=== PATIENT | male | born 1995 | race Caucasian/White ===

== ENCOUNTER 2016-06-24 11:19 | Emergency (ER) | payer OTHER ==
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
[2016-06-24 12:10] LABS: Glucose,Whole Blood 237 mg/dL (75-99)
[2016-06-24 12:29] LABS: Basophils % (A) 0 %; CHCM 34.5; Eosinophils % (A) 0 %; HCT 47.2 % (39.0-53.0); HDW 2.34; HGB 16.1 gm/dL (13.0-17.5); Luc # (Auto) 0.12; Luc % (Auto) 1; Lymphocytes # (A) 1.1 k/uL (1.0-4.8); Lymphocytes % (A) 9 %; MCH 30.7 pg (25.0-35.0); MCHC 34.1 g/dL (31.0-37.0); MCV 90.2 fL (80.0-100.0); Mean Platelet Volume 6.5; Monocytes # (A) 0.5 k/uL (0-1.0); Monocytes % (A) 5 %; Neutrophils % (A) 85 %; RBC 5.23 m/uL (4.30-5.90); RDW 12.2 % (11.5-15.5); WBC 11.8 k/uL (3.8-10.6); WBC (Perox) 11.72
[2016-06-24 12:37] LABS: ALT 28 U/L (21-72); AST 27 U/L (17-59); Alkaline Phosphatase 113 U/L (38-126); Anion Gap 10 mmol/L; Blood Urea Nitrogen 25 mg/dL (9-20); Calcium 9.5 mg/dL (8.4-10.2); Carbon Dioxide 27 mmol/L (22-30); Chloride 103 mmol/L (98-107); Glucose 237 mg/dL (74-99); Non-African American GFR(MDRD) >60 (>60 ml/min/1.73 sqM); Potassium 4.3 mmol/L (3.5-5.1); Sodium 140 mmol/L (137-145); Total Bilirubin 0.8 mg/dL (0.2-1.3); Total Protein 7.5 g/dL (6.3-8.2)
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
[2016-06-24 13:47] VITALS: RESP 18
[2016-06-24 14:13] LABS: Glucose,Whole Blood 168 mg/dL (75-99)
[2016-06-24 14:27] VITALS: BP 118/68; PULSE 84; TEMP 98
== END 2016-06-24 14:29 | disposition other institution (70) ==
LOC: EC 11:19
DX: S06.5X0A Traumatic subdural hemorrhage without loss of consciousness, initial encounter (principal); S80.02XA Contusion of left knee, initial encounter; M54.2 Cervicalgia; M79.621 Pain in right upper arm; E11.9 Type 2 diabetes mellitus without complications; Z88.1 Allergy status to other antibiotic agents; Z79.4 Long term (current) use of insulin; V48.5XXA Car driver injured in noncollision transport accident in traffic accident, initial encounter; Y92.410 Unspecified street and highway as the place of occurrence of the external cause
CPT/HCPCS: 36415; 70450; 71020; 72125; 80053; 85025; 93005; 99285

== ENCOUNTER → 2016-09-17 | Outpatient (CLI) | payer OTHER ==
[2016-09-17 22:05] LABS: Hemoglobin A1C 7.9 % (4.2-6.1)
== END | disposition home or self-care (01) ==
LOC: LABWHC1 16:47
PROVIDERS: ATTEND Pediatrics
DX: E10.9 Type 1 diabetes mellitus without complications (principal)
CPT/HCPCS: 36415; 83036

== ENCOUNTER 2016-10-31 08:11 | Emergency (ER) | payer OTHER ==
[2016-10-31 08:25] LABS: Glucose,Whole Blood 258 mg/dL (75-99)
[2016-10-31] MEDS ORDERED: SODIUM CHLORIDE 0.9% 1,000 ML IV ONE (08:40)
[2016-10-31] MEDS ORDERED: SODIUM CHLORIDE 0.9% 1,000 ML IV SCH (08:45)
--- NOTE | 2016-10-31 08:45 | ED ---
General Adult HPI - General Chief complaint: Recheck/Abnormal Lab/Rx Stated complaint: high blood sugar Time Seen by Provider: 10/31/16 08:30 Source: patient, RN notes reviewed, old records reviewed Mode of arrival: ambulatory Limitations: no limitations - History of Present Illness Initial comments: This is a 21-year-old male presents emergency Department chief complaint of elevated blood sugars for the past 2-3 days. Patient reports that he is a type I diabetic and was diagnosed 2 years ago. Patient reports that he uses a [employer] insulin pump. Patient reports that he does not know how to change his basal rate. Patient states that he eats the same meals every day, and does give him self the food bolus dose her insulin. Patient reports that he just feels generally tired. He reports that he works midnight. Denies any ascending fever, chills, or specific illnesses to cause elevated blood sugar. Patient reports that overall he is generally healthy. Patient states that he used to see Dr. Tamayo, who doesn't take his insurance anymore. He reports that he gets his insulin about from his PCP. - Related Data Home Medications Medication Instructions Recorded Confirmed Insulin Aspart (For Pump) [NovoLOG 0.01 unit SQ-PUMP CONTINUOUS 06/24/16 (For Pump)] Allergies Allergy/AdvReac Type Severity Reaction Status Date / Time cefixime [From Suprax] Allergy Severe Anaphylaxis Verified 10/31/16 08:22 Review of Systems ROS Statement: Those systems with pertinent positive or pertinent negative responses have been documented in the HPI. ROS Other: All systems not noted in ROS Statement are negative. Past Medical History Past Medical History: Diabetes Mellitus History of Any Multi-Drug Resistant Organisms: None Reported Past Surgical History: Orthopedic Surgery Additional Past Surgical History / Comment(s): "right hand re-construction surgery on pointer finger and thumb" Past Psychological History: No Psychological Hx Reported Smoking Status: Never smoker Past Alcohol Use History: None Reported Past Drug Use History: None Reported - Past Family History Mother Family Medical History: Asthma Additional Family Medical History / Comment(s): pernicious anemia Father Family Medical History: COPD General Exam - General Exam Comments Initial Comments: This is a 21-year-old male. Patient does not appear to be in any acute distress. Limitations: no limitations Head exam: Present: atraumatic, normocephalic, normal inspection Eye exam: Present: normal appearance, PERRL, EOMI. Absent: scleral icterus, conjunctival injection, periorbital swelling ENT exam: Present: normal exam Neck exam: Present: normal inspection. Absent: tenderness, meningismus, lymphadenopathy Respiratory exam: Present: normal lung sounds bilaterally. Absent: respiratory distress, wheezes, rales, rhonchi, stridor Cardiovascular Exam: Present: regular rate, normal rhythm, normal heart sounds. Absent: systolic murmur, diastolic murmur, rubs, gallop, clicks GI/Abdominal exam: Present: soft, normal bowel sounds. Absent: distended, tenderness, guarding, rebound, rigid Extremities exam: Present: normal inspection, full ROM, normal capillary refill. Absent: tenderness, pedal edema, joint swelling, calf tenderness Back exam: Present: normal inspection Neurological exam: Present: alert, oriented X3, CN II-XII intact Psychiatric exam: Present: normal affect, normal mood Skin exam: Present: warm, dry, intact, normal color. Absent: rash Course Vital Signs 10/31/16 10/31/16 10/31/16 08:13 09:23 10:55 Temperature 97.0 F L Pulse Rate 69 74 65 Respiratory 18 20 20 Rate Blood Pressure 116/63 127/56 113/56 O2 Sat by Pulse 99 99 100 Oximetry 10/31/16 11:12 Temperature 98 F Pulse Rate Respiratory Rate Blood Pressure O2 Sat by Pulse Oximetry Medical Decision Making - Medical Decision Making 21-year-old male with elevated blood sugar. Type I diabetic. Patient's blood sugar was elevated at 290. Patient's A1c was obtained but we do not have an this time. Negative acetone. Discussed that patient is alsobe in regards to changing his 8. Discussed continue dosing insulin boluses with meals as he is supposed to. Discussed monitoring diet. Patient's urinalysis did show positive for many white blood cells. Patient be treated with Zithromax and Levaquin is patient is ALLERGIC to some sports. Patient mother urine culture obtained. Discussed close follow-up with primary care provider. Return parameters were discussed. - Lab Data Result diagrams: 10/31/16 08:45 10/31/16 08:45 Lab Results 10/31/16 10/31/16 10/31/16 Range/Units 08:15 08:21 08:45 WBC (3.8-10.6) k/uL RBC (4.30-5.90) m/uL Hgb (13.0-17.5) gm/dL Hct (39.0-53.0) % MCV (80.0-100.0) fL MCH (25.0-35.0) pg MCHC (31.0-37.0) g/dL RDW (11.5-15.5) % Plt Count (150-450) k/uL Neutrophils % % Lymphocytes % % Monocytes % % Eosinophils % % Basophils % % Neutrophils # (1.3-7.7) k/uL Lymphocytes # (1.0-4.8) k/uL Monocytes # (0-1.0) k/uL Eosinophils # (0-0.7) k/uL Basophils # (0-0.2) k/uL Sodium 137 (137-145) mmol/L Potassium 5.1 (3.5-5.1) mmol/L Chloride 101 (98-107) mmol/L Carbon Dioxide 25 (22-30) mmol/L Anion Gap 11 mmol/L BUN 20 (9-20) mg/dL Creatinine 0.79 (0.66-1.25) mg/dL Est GFR (MDRD) Af Amer >60 (>60 ml/min/1.73 sqM) Est GFR (MDRD) Non-Af >60 (>60 ml/min/1.73 sqM) Glucose 267 H (74-99) mg/dL POC Glucose (mg/dL) 258 H (75-99) mg/dL POC Glu [facility] Chief ID Huyen Mcgovern [address] Glu mg/dL mg/dL Hemoglobin A1c (4.2-6.1) % Calcium 9.4 (8.4-10.2) mg/dL Total Bilirubin 0.5 (0.2-1.3) mg/dL AST 19 (17-59) U/L ALT 29 (21-72) U/L Alkaline Phosphatase 103 (38-126) U/L Total Protein 7.1 (6.3-8.2) g/dL Albumin 4.4 (3.5-5.0) g/dL Urine Color Light Yellow Urine Appearance Clear (Clear) Urine pH 7.0 (5.0-8.0) Ur Specific [place] 1.023 (1.001-1.035) Urine Protein Negative (Negative) Urine Glucose (UA) 4+ H (Negative) Urine Ketones Trace H (Negative) Urine Blood Negative (Negative) Urine Nitrite Negative (Negative) Urine Bilirubin Negative (Negative) Urine Urobilinogen <2.0 (<2.0) mg/dL Ur Leukocyte Esterase Moderate H (Negative) Urine RBC 5 (0-5) /hpf Urine WBC 32 H (0-5) /hpf Urine WBC Clumps Rare H (None) /hpf Acetone, Qual Negative (Negative) 10/31/16 10/31/16 Range/Units 08:45 08:45 WBC 6.9 (3.8-10.6) k/uL RBC 5.31 (4.30-5.90) m/uL Hgb 16.5 (13.0-17.5) gm/dL Hct 46.7 (39.0-53.0) % MCV 87.8 (80.0-100.0) fL MCH 31.1 (25.0-35.0) pg MCHC 35.4 (31.0-37.0) g/dL RDW 11.8 (11.5-15.5) % Plt Count 312 (150-450) k/uL Neutrophils % 59 % Lymphocytes % 30 % Monocytes % 7 % Eosinophils % 2 % Basophils % 1 % Neutrophils # 4.0 (1.3-7.7) k/uL Lymphocytes # 2.1 (1.0-4.8) k/uL Monocytes # 0.5 (0-1.0) k/uL Eosinophils # 0.1 (0-0.7) k/uL Basophils # 0.0 (0-0.2) k/uL Sodium (137-145) mmol/L Potassium (3.5-5.1) mmol/L Chloride (98-107) mmol/L Carbon Dioxide (22-30) mmol/L Anion Gap mmol/L BUN (9-20) mg/dL Creatinine (0.66-1.25) mg/dL Est GFR (MDRD) Af Amer (>60 ml/min/1.73 sqM) Est GFR (MDRD) Non-Af (>60 ml/min/1.73 sqM) Glucose (74-99) mg/dL POC Glucose (mg/dL) (75-99) mg/dL POC Glu [facility] Chief ID Estimated Ave Glu mg/dL 186 mg/dL Hemoglobin A1c 8.1 H (4.2-6.1) % Calcium (8.4-10.2) mg/dL Total Bilirubin (0.2-1.3) mg/dL AST (17-59) U/L ALT (21-72) U/L Alkaline Phosphatase (38-126) U/L Total Protein (6.3-8.2) g/dL Albumin (3.5-5.0) g/dL Urine Color Urine Appearance (Clear) Urine pH (5.0-8.0) Ur Specific [place] (1.001-1.035) Urine Protein (Negative) Urine Glucose (UA) (Negative) Urine Ketones (Negative) Urine Blood (Negative) Urine Nitrite (Negative) Urine Bilirubin (Negative) Urine Urobilinogen (<2.0) mg/dL Ur Leukocyte Esterase (Negative) Urine RBC (0-5) /hpf Urine WBC (0-5) /hpf Urine WBC Clumps (None) /hpf Acetone, Qual (Negative) Disposition Clinical Impression: Elevated glucose level, UTI (urinary tract infection) Disposition: HOME SELF-CARE Condition: Good Instructions: Type 1 Diabetes in Adults (ED) Additional Instructions: Patient denies to follow-up with your primary care provider in regards to changing her basal rate. Patient continue to dose the insulin bolus food as directed previously. Follow-up with your PCP within the next 1-2 days. Referrals: John Barnett MD [Primary Care Provider] - 1-2 days Time of Disposition: 10:56
[2016-10-31 08:59] LABS: Basophils % (A) 1 %; CH 30.5; CHCM 34.8; Eosinophils # (A) 0.1 k/uL (0-0.7); Eosinophils % (A) 2 %; HCT 46.7 % (39.0-53.0); HDW 2.49; HGB 16.5 gm/dL (13.0-17.5); Luc # (Auto) 0.12; Luc % (Auto) 2; Lymphocytes # (A) 2.1 k/uL (1.0-4.8); Lymphocytes % (A) 30 %; MCH 31.1 pg (25.0-35.0); MCHC 35.4 g/dL (31.0-37.0); MCV 87.8 fL (80.0-100.0); Mean Platelet Volume 6.3; Monocytes # (A) 0.5 k/uL (0-1.0); Monocytes % (A) 7 %; Neutrophils % (A) 59 %; RBC 5.31 m/uL (4.30-5.90); RDW 11.8 % (11.5-15.5); WBC 6.9 k/uL (3.8-10.6); WBC (Perox) 6.81
[2016-10-31 09:05] LABS: Appearance,Urine Clear (Clear); Bilirubin,Urine Negative (Negative); Glucose,Urine (UA) 4+ (Negative); Ketones,Urine Trace (Negative); Leukocyte Esterase,Urine Moderate (Negative); Nitrite,Urine Negative (Negative); Particle Count 360; Protein,Urine Negative (Negative); RBC,Urine 5 /hpf (0-5); Specific Gravity,Urine 1.023 (1.001-1.035); UA Billing (MACRO vs. MICRO) MICRO; Urobilinogen,Urine <2.0 mg/dL (<2.0); WBC,Urine 32 /hpf (0-5)
[2016-10-31 09:10] LABS: ALT 29 U/L (21-72); AST 19 U/L (17-59); Alkaline Phosphatase 103 U/L (38-126); Anion Gap 11 mmol/L; Blood Urea Nitrogen 20 mg/dL (9-20); Calcium 9.4 mg/dL (8.4-10.2); Carbon Dioxide 25 mmol/L (22-30); Chloride 101 mmol/L (98-107); Glucose 267 mg/dL (74-99); Non-African American GFR(MDRD) >60 (>60 ml/min/1.73 sqM); Potassium 5.1 mmol/L (3.5-5.1); Sodium 137 mmol/L (137-145); Total Bilirubin 0.5 mg/dL (0.2-1.3); Total Protein 7.1 g/dL (6.3-8.2)
[2016-10-31 09:59] VITALS: RESP 20
[2016-10-31] MEDS ORDERED: LEVOFLOXACIN 500 MG TAB PO STA (10:52)
[2016-10-31] MEDS ORDERED: AZITHROMYCIN 500 MG TAB PO STA (10:52)
[2016-10-31 10:56] VITALS: BP 113/56; PULSE 65
[2016-10-31 11:14] VITALS: TEMP 98
[2016-10-31 12:13] LABS: Hemoglobin A1C 8.1 % (4.2-6.1)
== END 2016-10-31 11:24 | disposition home or self-care (01) ==
LOC: EC 08:11
DX: E10.65 Type 1 diabetes mellitus with hyperglycemia (principal); N39.0 Urinary tract infection, site not specified; Z88.1 Allergy status to other antibiotic agents; Z79.4 Long term (current) use of insulin
CPT/HCPCS: 36415; 80053; 81001; 82009; 83036; 85025; 87086; 87491; 87591; 96360; 99283